=== PATIENT | female | born 1955 | race Caucasian/White ===

== ENCOUNTER 2019-05-27 12:47 | Inpatient (IN) | payer OTHER ==
[~2019-05-27] VITALS: Ht 165.1 cm; Wt 108.5 kg
[~2019-05-27 12:47] MED LIST: BENAZEPRIL HCL40 MG PO; BYSTOLIC 5 MG5 M1 PO; DIABETA 5MG TABL5 MG PO; HYDROCHLOROTHIA25 M2 PO; JANUMET 50-1,01 EACH PO; NABUMETONE 750750 M1 PO; NORCO 5-325 TA1 EACH PO; VERAPAMIL E.R240 M1 PO; ZANAFLEX4 MG PO; ZOCOR40 MG PO
[2019-05-27 12:48] VITALS: BP 151/78
[2019-05-27] MEDS ORDERED: AUGMENTIN 875-1 EACH PO (12:56)
[2019-05-27] MEDS ORDERED: ZETIA10 MG PO (12:56)
[2019-05-27] MEDS ORDERED: GLUCOSAMINE CH1 EAC1 PO (12:57)
[2019-05-27] MEDS ORDERED: JANUMET 50-1,01 EACH PO (12:58)
[2019-05-27] MEDS ORDERED: MONTELUKAST SODI4 M1 PO (12:59)
[2019-05-27] MEDS ORDERED: TRADJENTA5 MG (12:59)
[2019-05-27] MEDS ORDERED: GLIPIZIDE5 MG PO (13:00)
[2019-05-27] MEDS ORDERED: FLONASE 0.05%50 MCG NARES (13:00)
[2019-05-27] MEDS ORDERED: SIMVASTATIN80 MG PO (13:00)
[2019-05-27] MEDS ORDERED: VERAPAMIL E.R240 M1 PO (13:01)
[2019-05-27] MEDS ORDERED: VENLAFAXINE HCL75 M1 PO (13:01)
[2019-05-27] MEDS ORDERED: ACTOS 30 MG TAB30 MG PO (13:01)
[2019-05-27] MEDS ORDERED: CARVEDILOL12.5 MG PO (13:02)
[2019-05-27] MEDS ORDERED: PREGABALIN75 MG PO (13:02)
[2019-05-27 13:19] LABS: INFLUENZA A ANTIGEN Negative (Negative); INFLUENZA B ANTIGEN Negative (Negative)
[2019-05-27 13:22] LABS: HEMATOCRIT 34.9 % (37.0-47.0); HEMOGLOBIN 11.6 gm/dL (12.0-15.0); MCH 29.7 pg (26.0-34.0); MCHC 33.2 g/dL (28.0-37.0); MCV 89.5 fL (80.0-100.0); MPV 9.2 fl. (7.2-11.1); NUCLEATED RBCS 0 /100WBC; PLATELET COUNT* 294 thou/uL (150-400); RDW-CV 16.6 % (10.5-14.5); WBC 9.2 thou/uL (4.0-11.0)
[2019-05-27 13:34] LABS: APTT 28.3 Seconds (25.0-31.3); INR 1.1; PROTIME 11.4 Seconds (9.20-11.50)
[2019-05-27 13:37] LABS: URINE BILIRUBIN NEGATIVE (Negative); URINE BLOOD 3+ (Negative); URINE CLARITY TURBID; URINE COLOR BROWN; URINE GLUCOSE-RANDOM 3+ (Negative); URINE KETONES NEGATIVE (Negative); URINE LEUKOCYTES-REFLEX TRACE (Negative); URINE NITRITE-REFLEX NEGATIVE (Negative); URINE PROTEIN TRACE (Negative); URINE SPECIFIC GRAVITY 1.025 (1.005-1.030); URINE UROBILINOGEN 0.2 E.U./dl (0.2-1.0)
[2019-05-27 13:45] LABS: CALCIUM 8.8 mg/dL (8.5-10.1); CREATININE 1.6 mg/dL (0.6-1.3); POTASSIUM 3.7 mmol/L (3.5-5.1)
[2019-05-27 13:46] LABS: BACTERIA-REFLEX >30 Many /HPF (None Seen); CASTS None Seen /LPF (None Seen); SQUAMOUS 0-3 Few /LPF (0-3); URINE RBC >20 Many /HPF (0-2); URINE WBC-REFLEX >25 Many /HPF (0-5); WBC CLUMPS Moderate (None Seen)
[2019-05-27 13:46] LABS: ALBUMIN 1.8 g/dL (3.4-5.0); TOTAL BILIRUBIN 0.4 mg/dL (<0.1-1.0); TOTAL PROTEIN 7.1 g/dL (6.4-8.2)
[2019-05-27 13:47] LABS: CRYSTALS None Seen /LPF (None Seen)
[2019-05-27 14:09] LABS: ABSOLUTE EOSINOPHILS 0.1 thou/uL (0.0-0.7); ABSOLUTE LYMPHOCYTES 0.8 thou/uL (0.8-5.3); ABSOLUTE MONOCYTES 0.2 thou/uL (0.0-1.2); ABSOLUTE NEUTROPHILS 8.1 thou/uL (1.6-8.1); ANISOCYTOSIS 1+; METAMYELOCYTES 3 %; MYELOCYTES 3 %; PLATELET ESTIMATE ADEQUATE; POLYCHROMASIA Occasional; TOXIC GRANULATION 2+
[2019-05-27 15:54] LABS: MAGNESIUM 2.5 mg/dL (1.8-2.4); PHOSPHORUS* 3.1 mg/dL (2.5-4.9)
[2019-05-27 16:47] LABS: AMP/METHAMP Negative (Negative); BARBITURATES Negative (Negative); BENZODIAZEPINES Negative (Negative); COCAINE Negative (Negative); METHADONE Negative (Negative); OPIATES Negative (Negative); PCP Negative (Negative); THC Negative (Negative)
[2019-05-27 19:40] VITALS: BP 122/80
[2019-05-27 21:30] VITALS: BP 109/70
[2019-05-28] VITALS (7 sets, daily range): BP systolic 81–121; BP diastolic 40–62
[2019-05-28 21:40] LABS: ANION GAP 14 mmol/L (7-16); BUN 73 mg/dL (7-18); CALCIUM 7.8 mg/dL (8.5-10.1); CHLORIDE 104 mmol/L (98-107); CO2 20 mmol/L (21-32); CREATININE 1.9 mg/dL (0.6-1.3); GLUCOSE 342 mg/dL (70-99); POTASSIUM 4.4 mmol/L (3.5-5.1); SODIUM 138 mmol/L (136-145)
[2019-05-28 21:46] LABS: ALBUMIN 1.2 g/dL (3.4-5.0); ALKALINE PHOSPHATASE 152 U/L (46-116); AMMONIA < 10 umol/L (11-32); MAGNESIUM 2.7 mg/dL (1.8-2.4); PHOSPHORUS* 4.2 mg/dL (2.5-4.9); SGOT 44 U/L (15-37); SGPT 29 U/L (30-65); TOTAL BILIRUBIN 0.5 mg/dL (<0.1-1.0); TOTAL PROTEIN 6.3 g/dL (6.4-8.2)
[2019-05-29] VITALS (16 sets, daily range): BP systolic 79–141; BP diastolic 42–72
[2019-05-29 02:07] LABS: GLYCOHEMOGLOBIN (HGB A1C) 10.3 % (4.8-5.6)
[2019-05-29 04:35] LABS: HEMOGLOBIN 10.2 gm/dL (12.0-15.0); MCH 29.1 pg (26.0-34.0); NUCLEATED RBCS 0 /100WBC
[2019-05-29 04:37] LABS: HEMATOCRIT 31.4 % (37.0-47.0); MCHC 32.6 g/dL (28.0-37.0); MCV 89.3 fL (80.0-100.0); MPV 9.2 fl. (7.2-11.1); PLATELET COUNT* 274 thou/uL (150-400); RBC 3.52 mil/uL (4.20-5.00); RDW-CV 17.3 % (10.5-14.5); WBC 12.7 thou/uL (4.0-11.0)
[2019-05-29 05:20] LABS: ALBUMIN 1.3 g/dL (3.4-5.0); CALCIUM 7.9 mg/dL (8.5-10.1); TOTAL BILIRUBIN 0.5 mg/dL (<0.1-1.0); TOTAL PROTEIN 6.3 g/dL (6.4-8.2)
[2019-05-29 06:07] LABS: ABSOLUTE LYMPHOCYTES 0.9 thou/uL (0.8-5.3); ABSOLUTE MONOCYTES 0.1 thou/uL (0.0-1.2); ABSOLUTE NEUTROPHILS 11.7 thou/uL (1.6-8.1); MYELOCYTES 1 %; PLATELET ESTIMATE ADEQUATE
[2019-05-29 06:08] LABS: ANISOCYTOSIS 1+; POIKILOCYTOSIS 1+
--- NOTE | 2019-05-29 07:26 | CON ---
[address] [address] CONSULTATION Name: ORI SINCLAIR Room: [address] ADM IN M.R.#: [id number] Admission: 05/27/19 Attend Phys: Citlaly Paige Discharge: Date of : 55 Report #: [id number] THIS REPORT FOR: //name// cc: DIMAS Corona family physician/PCP DIMAS Corona family physician/PCP ~ THIS REPORT FOR: //name// CC: DIMAS physician/PCP Citlaly Hernandez DATE OF SERVICE: 05/28/2019 INFECTIOUS DISEASE CONSULTATION ATTENDING PHYSICIAN: Citlaly Hernandez MD REASON FOR EVALUATION: Necrotizing skin and soft tissue infection involving the right side of the perineum into the abdominal wall, like on a basis of hidradenitis suppurativa. HISTORY OF PRESENT ILLNESS: Chart reviewed, the patient examined. She is seen postop day-1. A 64-year-old with uncontrolled diabetes mellitus type 2 and does have history of hidradenitis suppurativa, morbid obesity, who over the course of the last several day, she dates back roughly 4-5, had become quite weak and several falls, noted increasing inflammation associated with her right groin with significant associated pain. She is somewhat encephalopathic, does not know a lot details on the history. Did admit to fevers, perhaps chills, some dysuria. She was evaluated, including imaging, which showed some extensive subcutaneous emphysema of the abdominal wall, both flanks and retroperitoneal space. Evaluation was felt to be most consistent with a necrotizing infection. She was emergently taken to surgery, underwent debridement of what was confirmed to be a necrotizing soft tissue infection of the right thigh, abdomen and perineum. Cultures have been collected, in progress on the combination therapy at this point with vancomycin, piperacillin and tazobactam as well as clindamycin. She is on supplemental oxygen support per nasal cannula. She has had a reasonable amount of urine output. ALLERGIES: None known. MEDICATIONS: Currently include montelukast, glipizide, verapamil SR, fluticasone, ezetimibe, venlafaxine, vancomycin, p.r.n. analgesics, antiemetics, Zosyn, carvedilol, clindamycin, insulin lispro sliding scale. PAST MEDICAL HISTORY: Above noted, diabetes mellitus type 2; noncontrolled, history of hypertension, hyperlipidemia, [place] [address] CONSULTATION Name: ORI SINCLAIR Chiquita Room: [address]#: [id number] Admission: 05/27/19 Attend Phys: Citlaly Paige Discharge: Date of : 55 Report #: [id number] SOCIAL HISTORY: Former smoker. No ethanol. No illicit drug use. FAMILY HISTORY: Noncontributory. REVIEW OF SYSTEMS: As noted above. It is not clear that this is accurate a description. She is mildly encephalopathic. PHYSICAL EXAMINATION: GENERAL: She appears ill, not overtly toxic. She does not respond. She is in moderate distress at this point. VITAL SIGNS: Temperature 97.4, pulse 88, respirations 19, blood pressure is 94/49. SKIN: Warm, no rashes. NECK: Supple. Nasal cannula oxygen in place. Extraocular muscles intact. LUNGS: Increased dry respiratory efforts. A few scattered coarse breath sounds. HEART: Regular. Borderline tachycardic. I do not appreciate a murmur. ABDOMEN: Obese. There is pannus. Does have a dressing in place in the right inguinal site, extends onto the abdominal wall in the perineal area, proximal thigh. Some moderate degree of inflammation noted superficially. GENITOURINARY AND RECTAL: Deferred. LABORATORY DATA: Prealbumin low at 4.4. Lactic acid on admission 1.7. CT abdomen and pelvis described above. Urine drug screen was unremarkable. CT of the chest was unremarkable. Electrolytes: Sodium 132, potassium 3.7, chloride 98, bicarb is 24, anion gap of 10, BUN and creatinine 43 and 1.6, glucose was 597. AST of 18, ALT of 25. Albumin is low at 1.8, total protein of 7.1. CBC: White count of 9.2, H and H 12.6 and 34.9, platelets of 294. Had some Dohle bodies noted and 2+ toxic granulations. Urinalysis greater than 25 white cells, greater than 30 bacteria. Chest x-ray: Cardiomegaly without significant acute issues. Possible atelectasis in the right base. Influenza antigen was negative. ASSESSMENT: Necrotizing skin and soft tissue infection. Evidence suggests [id number] progression, would assume skin-type mohan, although cannot exclude Gram-negatives. We will continue current therapy. Await results of the operative cultures, including the blood stream, which may well be positive as well. Certainly, likely there is a urinary tract infection. She remains quite tenuous. We will encourage incentive spirometry. Continue wound care as prescribed. Deferred to Surgery about any additional surgical intervention. <ELECTRONICALLY SIGNED> By: Julio C Cowart MD 05/29/19 0726 0930 [id number] pierre Cowart MD /nt
[2019-05-29 13:44] LABS: BE -11.9 mmol/L (-2 to +3); PO2 98.5 mmHg (75.0-100.0)
[2019-05-29 13:46] LABS: pH 7.093 (7.340-7.450)
[2019-05-29 13:47] LABS: PCO2 62.2 mmHg (35.0-45.0)
[2019-05-29 17:10] LABS: BE -9.8 mmol/L (-2 to +3); PCO2 46.2 mmHg (35.0-45.0); PO2 122.2 mmHg (75.0-100.0)
[2019-05-29 17:13] LABS: pH 7.204 (7.340-7.450)
[2019-05-30] VITALS (41 sets, daily range): BP systolic 83–128; BP diastolic 44–86
[2019-05-30 05:20] LABS: BE -7.9 mmol/L (-2 to +3); PCO2 43.2 mmHg (35.0-45.0)
[2019-05-30 05:22] LABS: PO2 133.9 mmHg (75.0-100.0)
[2019-05-30 05:23] LABS: pH 7.259 (7.340-7.450)
[2019-05-30 05:25] LABS: HEMATOCRIT 25.5 % (37.0-47.0); HEMOGLOBIN 8.9 gm/dL (12.0-15.0); MCH 30.6 pg (26.0-34.0); MCHC 35.1 g/dL (28.0-37.0); MCV 87.2 fL (80.0-100.0); MPV 8.7 fl. (7.2-11.1); RBC 2.93 mil/uL (4.20-5.00); RDW-CV 17.3 % (10.5-14.5); WBC 17.4 thou/uL (4.0-11.0)
[2019-05-30 06:56] LABS: CREATININE 2.4 mg/dL (0.6-1.3); MAGNESIUM 3.6 mg/dL (1.8-2.4); TOTAL BILIRUBIN 0.7 mg/dL (<0.1-1.0); TOTAL PROTEIN 5.8 g/dL (6.4-8.2)
[2019-05-30 16:39] LABS: HEMATOCRIT 20.7 % (37.0-47.0)
[2019-05-30 16:42] LABS: HEMOGLOBIN 6.9 gm/dL (12.0-15.0)
[2019-05-30 18:36] LABS: URINE BILIRUBIN NEGATIVE (Negative); URINE BLOOD NEGATIVE (Negative); URINE CLARITY SL CLOUDY; URINE COLOR YELLOW; URINE GLUCOSE-RANDOM NEGATIVE (Negative); URINE KETONES NEGATIVE (Negative); URINE LEUKOCYTES NEGATIVE (Negative); URINE NITRITE NEGATIVE (Negative); URINE PROTEIN TRACE (Negative); URINE SPECIFIC GRAVITY >= 1.030 (1.005-1.030); URINE UROBILINOGEN 0.2 E.U./dl (0.2-1.0)
[2019-05-30 18:43] LABS: HYALINE CASTS >10 Many /LPF (None Seen); SQUAMOUS >10 Many /LPF (0-3)
[2019-05-30 18:44] LABS: MUCUS 0-3 Light strn/LPF (None Seen)
[2019-05-30 18:45] LABS: AMORPHOUS URATES Few /LPF (None Seen); URINE RBC 0-2 Rare /HPF (0-2); URINE WBC 0-5 Rare /HPF (0-5)
[2019-05-30 18:49] LABS: BACTERIA 1-9 Few /HPF (None Seen)
[2019-05-30 20:17] LABS: HEMATOCRIT 25.5 % (37.0-47.0)
[2019-05-30 20:19] LABS: HEMOGLOBIN 9.3 gm/dL (12.0-15.0)
[2019-05-30 20:25] LABS: APTT 23.8 Seconds (25.0-31.3)
[2019-05-31] VITALS (36 sets, daily range): BP systolic 104–153; BP diastolic 46–81
[2019-05-31 04:57] LABS: HEMATOCRIT 24.9 % (37.0-47.0); HEMOGLOBIN 9.3 gm/dL (12.0-15.0); MCH 32.2 pg (26.0-34.0); MCHC 37.4 g/dL (28.0-37.0); MCV 86.1 fL (80.0-100.0); RBC 2.89 mil/uL (4.20-5.00); RDW-CV 17.5 % (10.5-14.5); WBC 16.8 thou/uL (4.0-11.0)
[2019-05-31 05:30] LABS: ALBUMIN 1.2 g/dL (3.4-5.0); POTASSIUM 4.2 mmol/L (3.5-5.1); TOTAL BILIRUBIN 0.9 mg/dL (<0.1-1.0)
[2019-05-31 05:52] LABS: MAGNESIUM 3.7 mg/dL (1.8-2.4)
[2019-05-31 06:11] LABS: TOTAL PROTEIN 4.1 g/dL (6.4-8.2)
[2019-05-31 06:13] LABS: CALCIUM 5.9 mg/dL (8.5-10.1); CREATININE 2.4 mg/dL (0.6-1.3)
[2019-05-31 10:23] LABS: BE -12.9 mmol/L (-2 to +3); PCO2 VENOUS 36.9 mmHg (41.0-51.0); PO2 VENOUS 57.1 mmHg (35.0-45.0)
[2019-05-31 21:41] LABS: BE -10.1 mmol/L (-2 to +3); PO2 VENOUS 102.3 mmHg (35.0-45.0)
[2019-06-01] VITALS (25 sets, daily range): BP systolic 113–149; BP diastolic 46–72
[2019-06-01 04:13] LABS: BE -13.9 mmol/L (-2 to +3); PO2 VENOUS 93.7 mmHg (35.0-45.0)
[2019-06-01 05:26] LABS: POTASSIUM 4.9 mmol/L (3.5-5.1)
[2019-06-01 05:27] LABS: CALCIUM 7.1 mg/dL (8.5-10.1); CREATININE 1.9 mg/dL (0.6-1.3); TOTAL BILIRUBIN 0.5 mg/dL (<0.1-1.0)
[2019-06-01 05:28] LABS: MAGNESIUM 3.4 mg/dL (1.8-2.4)
[2019-06-01 05:29] LABS: ALBUMIN 1.4 g/dL (3.4-5.0)
[2019-06-01 07:33] LABS: BE -11.7 mmol/L (-2 to +3); PCO2 VENOUS 38.9 mmHg (41.0-51.0); PO2 VENOUS 146.4 mmHg (35.0-45.0)
[2019-06-01 09:08] LABS: RBC 2.98 mil/uL (4.20-5.00); WBC 24.2 thou/uL (4.0-11.0)
[2019-06-01 09:09] LABS: HEMATOCRIT 25.9 % (37.0-47.0); HEMOGLOBIN 8.2 gm/dL (12.0-15.0); MCHC 31.5 g/dL (28.0-37.0); MCV 86.9 fL (80.0-100.0); MPV 10.5 fl. (7.2-11.1); RDW-CV 18.8 % (10.5-14.5)
[2019-06-01 09:16] LABS: MCH 27.3 pg (26.0-34.0)
--- NOTE | 2019-06-01 12:22 | EKG ---
[place] [address] ELECTROCARDIOGRAM REPORT Name: ORI SINCLAIR Room: [address] IN ..#: [id number] Admission: 05/27/19 Attend Phys: Citlaly simpson Sa Discharge: Date of : 55 Date of Service: 05/27/19 1251 Report #: [id number] THIS REPORT FOR: //name// [facility] ED Test Date: 2019-05-27 Test Time: 12:51:25 Pat Name: ORI SINCLAIR Department: Room: [facility] Gender: F Crisis Worker: RODGER : 1955 Requested By: Ismael Holloway Order Number: [id number] MD: Brent Andre Measurements Intervals Peggs Rate: 117 P: 58 IL: 151 QRS: 63 QRSD: 80 T: 25 QT: 299 QTc: 417 Interpretive Statements Sinus tachycardia Low voltage, precordial leads No previous ECG available for comparison Electronically Signed On 05-28-2019 9:08:48 CDT by Brent Andre [email or web address] <ELECTRONICALLY SIGNED> By: Brent Andre MD, [facility] 05/28/19 0908 1251 1251 Brent Andre MD, [facility] /EPI
[2019-06-01 21:13] LABS: BE -1.4 mmol/L (-2 to +3); PCO2 VENOUS 38.2 mmHg (41.0-51.0); PO2 VENOUS 221.3 mmHg (35.0-45.0)
[2019-06-02] VITALS (47 sets, daily range): BP systolic 56–178; BP diastolic 12–134
[2019-06-02 06:04] LABS: POTASSIUM 3.7 mmol/L (3.5-5.1)
[2019-06-02 06:43] LABS: CALCIUM 6.1 mg/dL (8.5-10.1); CREATININE 1.5 mg/dL (0.6-1.3); PHOSPHORUS* 7.2 mg/dL (2.5-4.9)
[2019-06-02 06:44] LABS: ALBUMIN 1.2 g/dL (3.4-5.0); TOTAL PROTEIN 4.2 g/dL (6.4-8.2)
[2019-06-02 11:10] LABS: BE -4.6 mmol/L (-2 to +3); PCO2 VENOUS 35.2 mmHg (41.0-51.0); PO2 VENOUS 51.2 mmHg (35.0-45.0)
[2019-06-02 11:27] LABS: MCV 87.3 fL (80.0-100.0); NUCLEATED RBCS 0 /100WBC; WBC 21.1 thou/uL (4.0-11.0)
[2019-06-02 12:33] LABS: PLATELET COUNT* 201 thou/uL (150-400)
[2019-06-02 12:43] LABS: HEMOGLOBIN 8.1 gm/dL (12.0-15.0)
[2019-06-02 12:50] LABS: HEMATOCRIT 19.2 % (37.0-47.0)
[2019-06-02 12:51] LABS: MCH 28.6 pg (26.0-34.0); MCHC 32.8 g/dL (28.0-37.0)
[2019-06-02 13:43] LABS: ABSOLUTE EOSINOPHILS 0.2 thou/uL (0.0-0.7); ABSOLUTE LYMPHOCYTES 1.7 thou/uL (0.8-5.3); ABSOLUTE MONOCYTES 0.4 thou/uL (0.0-1.2); ABSOLUTE NEUTROPHILS 18.8 thou/uL (1.6-8.1)
[2019-06-02 13:44] LABS: PLATELET ESTIMATE ADEQUATE
--- NOTE | 2019-06-04 09:31 | CON ---
[address] [address] CONSULTATION Name: ORI SINCLAIR Room: [address] IN M.R.#: [id number] Admission: 05/27/19 Attend Phys: Citlaly Paige Discharge: 06/02/19 Date of : 55 Report #: [id number] THIS REPORT FOR: //name// cc: DIMAS Corona family physician/PCP DIMAS Corona family physician/PCP ~ THIS REPORT FOR: //name// CC: DIMAS physician/PCP Citlaly Hernandez DATE OF SERVICE: 05/30/2019 NEPHROLOGY CONSULTATION CONSULTING PHYSICIAN: Dr. Reddy. REASON FOR NEPHROLOGY CONSULTATION: Acute kidney injury, oliguric. REASON FOR ADMISSION: Severe sepsis, hidradenitis suppurativa of right groin CHIEF COMPLAINT: Right groin pain and she had been having multiple falls and weakness for the past few days prior to admission. HISTORY OF PRESENT ILLNESS: This is a 64-year-old female with uncontrolled diabetes, sedentary lifestyle, hidradenitis suppurativa in the past, obesity, came in because she was having pain in the right groin subtle with a boil, but then progressively became worse and swollen and she has also been having falls at home and she took some Bactrim at home. We do not have a baseline creatinine. We know that it was 0.9 in 04/2015, but she came in with a creatinine of 1.[address] abdomen and pelvis, which was done on 05/26 with IV contrast showed evidence of purulent hidradenitis suppurativa of right groin with palpable crepitus. The patient actually underwent excisional debridement the same day of admission on 05/26. She was taken back to the OR yesterday because of another excisional debridement of the same area and she is supposed to be taken to the OR again today because of severe necrotizing fasciitis. She was hypotensive yesterday, blood pressure as low as 79/42. Blood pressure is still low this morning and she will be started on pressors. She was given IV fluids initially, which were then stopped, but then restarted yesterday. She has also been getting vancomycin. Vancomycin level was slightly high yesterday at 23. She also has possible left basilar pneumonia. She is currently intubated and sedated. Her urine output was only 140 mL overnight. She has also been getting banana bag and magnesium level is rising. REVIEW OF SYSTEMS: Not able to obtain from the patient because she is sedated. ALLERGIES: [place] [address] CONSULTATION Name: ORI SINCLAIR Room: [address] IN ..#: [id number] Admission: 05/27/19 Attend Phys: Citlaly simpson [place] Discharge: 06/02/19 Date of : 55 Report #: [id number] PAST MEDICAL AND SURGICAL HISTORY: Includes hypertension, hyperlipidemia, tubal ligation, diabetes mellitus, which is uncontrolled. Her A1c was 10.3 this time. FAMILY HISTORY: Heart disease and hypertension. SOCIAL HISTORY: Former smoker. Does not use recreational drugs. Does not use alcohol. HOME MEDICATIONS: Include Janumet. She is on hydrochlorothiazide, verapamil, Zetia. She is on glucosamine chondroitin. She is on montelukast, Tradjenta, glipizide, fluticasone, pioglitazone, venlafaxine, pregabalin, carvedilol. PHYSICAL EXAMINATION: VITAL SIGNS: Her blood pressure is 98/55, her temperature is 36.6, pulse rate 79, respiratory rate is 20, pulse ox 95%. She is on ventilator. GENERAL: She is intubated. HEAD AND EYES: Atraumatic, normocephalic. EARS, NOSE, AND THROAT: Normal ears and nose. ET tube in place. NECK: No JVD. CHEST: Bilateral diminished breath sounds. No crackles anteriorly. CARDIOVASCULAR: S1, S2 normal. No murmurs. ABDOMEN: Obese, distended especially in the lower area. GENITOURINARY: She has swelling in the bottom part of her abdomen in the groin area as well as erythema. EXTREMITIES: Lower extremities; they are getting puffier. There was no pitting edema. NEUROLOGIC: Sedated, could not be assessed. PSYCHIATRIC: Not able to assess. She is intubated and sedated. LABORATORY DATA: Her white count is 17.4 and rising from 12.7 yesterday, hemoglobin is 8.9, platelet count is 252,000. Sodium was 140, potassium was 4.0, chloride was 106, BUN was 108, creatinine was 2.4 up from 2.0, pH was 7.259 with a pCO2 of 43 and a bicarb of 22 on her BMP, A1c of 10.3, magnesium of 3.6. Vancomycin level yesterday was 23 and other labs are reviewed. IMAGING: Abdominal x-ray and abdominal and pelvic CT scan, head CT scan, chest CT scan are all reviewed. ASSESSMENT: 1. Acute kidney injury. This is likely ischemic acute tubular necrosis in the setting of intravascular volume depletion as well as element of contrast-induced nephropathy. She had a CAT scan on 05/25. Her baseline creatinine is not known. We know that in 04/2015 was 0.9 and it was 1.6 on admission, but it has been rising now. She is also oliguric. Had to be taken to the OR twice already and will be taken again today for further excisional [place] [address] CONSULTATION Name: ORI SINCLAIR Room: [address] IN M.R.#: [id number] Admission: 05/27/19 Attend Phys: Citlaly simpson [place] Discharge: 06/02/19 Date of : 55 Report #: [id number] fasciitis of the groin. Initial UA was reviewed and showed trace protein and wbc's and rbc's. There was no evidence of hydronephrosis on her CAT scan, which was done yesterday. 2. Sepsis, about to be started on pressors. This is because of hidradenitis suppurativa purulent. 3. Uncontrolled diabetes type 2. 4. Hypotension. 5. Possible benzodiazepine withdrawal. 6. Also being treated for complicated urinary tract infection. 7. Obesity. 8. Hypermagnesemia. 9. Left basilar pneumonia. 10. Right adrenal mass, incidentally found on CT scan. PLAN: 1. Avoid lactated Ringer's because she is not making much urine and potassium will have a tendency to go up and lactated Ringer's has potassium in it. 2. Try to maintain a MAP of around 70. She will need pressor initiation. 3. IV fluids and normal saline at 80 mL an hour is fine for now. Avoid banana bag and other magnesium containing compounds because the magnesium is rising. 4. Vancomycin level should be followed closely. If level is greater than 20, should not be redosed because of fear of nephrotoxicity. 5. Avoid nephrotoxic agents or IV contrast exposures if possible. 6. There is no acute need for dialysis yet, but she might need it during her hospital course. 7. Repeat UA if possible. 8. Strict I's and O's. Thank you for this consultation. I spent 45 minutes and critical care time was spent in chart review, placing orders and care coordination, discussion with the patient's nurse and we will continue to follow along with you. <ELECTRONICALLY SIGNED> By: Nanci Vargas MD 06/04/19 0931 1006 [id number] Vargas MD /nt
--- NOTE | 2019-06-07 08:19 | OP ---
[facility] [address] [place] [address] OPERATIVE REPORT Name: ORI SINCLAIR Chiquita Room: [address] IN M.R.#: [id number] Admission: 05/27/19 Attend Phys: Citlaly Paige Discharge: 06/02/19 Date of : 55 Report #: [id number] THIS REPORT FOR: //name// cc: DIMAS Corona family physician/PCP DIMAS Corona family physician/PCP ~ THIS REPORT FOR: //name// CC: DIMAS physician/PCP Citlaly Hernandez DATE OF SERVICE: 05/27/2019 PREOPERATIVE DIAGNOSIS: Necrotizing soft tissue infection of the right thigh, abdominal wall, and perineum. POSTOPERATIVE DIAGNOSIS: Necrotizing soft tissue infection of the right thigh, abdominal wall, and perineum. OPERATION: Debridement of necrotizing soft tissue infection of the right thigh, abdomen, and perineum. SURGEON: Sarbjit Hale M.D. ANESTHESIA: General. ESTIMATED BLOOD LOSS: 100 mL. SPECIMEN: Abscess fluid for culture and sensitivity. DESCRIPTION OF PROCEDURE: After informed consent was obtained, the patient was brought to the operating room and placed supine. SCDs were placed and working, preoperative antibiotics were administered, general anesthesia was induced. The abdomen and right thigh were prepped and draped in the usual sterile fashion. Cultures were taken of the fluid. The opening in the right thigh was extended superiorly and laterally. This was done for approximately 20 cm. There was a foul-smelling turbid fluid that was released. I then explored medially toward the pubis and laterally toward the right flank. There was again more turbid foul-smelling necrotic tissue and fluid. This was debrided with the cautery. This did extend down the right thigh into at the perineum as well. The area was then copiously irrigated with normal saline. The area was then packed with sterile gauze. Sterile dressings were applied. COMPLICATIONS: [place] [address] OPERATIVE REPORT Name: ORI SINCLAIR Room: [address]#: [id number] Admission: 05/27/19 Attend Phys: Citlaly simpson [place] Discharge: 06/02/19 Date of : 55 Report #: [id number] DISPOSITION: The patient was taken to recovery in satisfactory condition. <ELECTRONICALLY SIGNED> By: Sarbjit Hale MD 06/07/19 0819 2107 [id number] Hale MD /nt
--- NOTE | 2019-06-07 08:19 | OP ---
[address] [address] OPERATIVE REPORT Name: DOTTIEORI Chiquita Room: [address] IN M.R.#: [id number] Admission: 05/27/19 Attend Phys: Citlaly Paige Discharge: 06/02/19 Date of : 55 Report #: [id number] THIS REPORT FOR: //name// cc: DIMAS Corona family physician/PCP DIMAS Corona family physician/PCP ~ THIS REPORT FOR: //name// CC: DIMAS physician/PCP Citlaly Hernandez DATE OF SERVICE: 05/31/2019 PREOPERATIVE DIAGNOSES: Necrotizing soft tissue infection of the right groin and abdomen. POSTOPERATIVE DIAGNOSES: Necrotizing soft tissue infection of the right groin and abdomen. OPERATION: Excisional debridement of necrotizing soft tissue infection of the right abdomen, groin and perineum. SURGEON: Sarbjit Hale MD ANESTHESIA: General. ESTIMATED BLOOD LOSS: Minimal. SPECIMEN: None. DESCRIPTION OF PROCEDURE: After informed consent was obtained, the patient was brought to the operating room and placed supine. This consent was at a medical necessity. General anesthesia was induced. The abdomen was prepped and draped in a usual sterile fashion with Betadine. All the previously placed packs were removed. I examined the tissue. There was no more purulence. There was no more foul odor. There were areas of necrotic tissue. These were green, consistent with necrotizing infection. I grasped these areas and excised them with electrocautery. This was excisional. Depth was down through the fascia and muscle. An 80% of the wound was debrided. The post-debridement wound area was approximately 30 x 20 x 10 cm. I then irrigated the area copiously with normal saline. It was then packed with sterile gauze. Sterile dressings were applied. COMPLICATIONS: [place] [address] OPERATIVE REPORT Name: ORI SINCLAIR Room: [facility] IN [facility].#: [id number] Admission: 05/27/19 Attend Phys: Citlaly french [place] Discharge: 06/02/19 Date of : 55 Report #: [id number] DISPOSITION: The patient was taken to recovery in satisfactory condition. <ELECTRONICALLY SIGNED> By: Sarbjit Hale MD 06/07/19 0819 1405 [id number] Hale MD /nt
--- NOTE | 2019-06-07 08:19 | OP ---
[address] [address] OPERATIVE REPORT Name: DOTTIEORI Chiquita Room: [address] IN M.R.#: [id number] Admission: 05/27/19 Attend Phys: Citlaly Paige Discharge: 06/02/19 Date of : 55 Report #: [id number] THIS REPORT FOR: //name// cc: DIMAS Corona family physician/PCP DIMAS Corona family physician/PCP ~ THIS REPORT FOR: //name// CC: DIMAS physician/PCP Citlaly Hernandez DATE OF SERVICE: 05/29/2019 PREOPERATIVE DIAGNOSIS: Necrotizing soft tissue infection of the right groin and abdomen. POSTOPERATIVE DIAGNOSIS: Necrotizing soft tissue infection of the right groin and abdomen. OPERATION: Excisional debridement of necrotizing soft tissue of the right groin and abdomen, down through muscle. SURGEON: Sarbjit Hale MD ANESTHESIA: General. ESTIMATED BLOOD LOSS: Minimal. SPECIMEN: None. DESCRIPTION OF PROCEDURE: After informed consent was obtained, the patient was brought to the operating room and placed supine. Consent was implied as the patient is very confused and this was done at a medical necessity. The patient underwent general anesthesia. The right abdomen was prepped and draped in the usual sterile fashion with Betadine. The previously placed dressings were removed. Exploration was undertaken. She still had areas of necrosis in the incision. Therefore, I elected to debride away approximately 30 x 20 cm area of skin and underlying fascia and muscle as well as fat. I used the cautery to sharply debride away this necrotic tissue. I dissected away to normal appearing fat on all sides. The odor was much improved. The area was then examined. I was able to dissect across the midline at the level of the pubis and looked over into the left subcutaneous area. There was no evidence of any necrosis on that side. The area was then copiously irrigated with normal saline. It was packed with Kerlix rolls soaked in half strength Dakin's solution. Sterile [place] [address] OPERATIVE REPORT Name: ORI SINCLAIR Room: [address] IN M.R.#: [id number] Admission: 05/27/19 Attend Phys: Citlaly french gary [place] Discharge: 06/02/19 Date of : 55 Report #: [id number] COMPLICATIONS: None. DISPOSITION: The patient was taken to recovery in very guarded condition. <ELECTRONICALLY SIGNED> By: Sarbjit Hale MD 06/07/19 0819 1042 [id number] Hale MD /manisha
== END 2019-06-02 19:27 | DRG 853 ==
LOC: M.ERS 12:47 → M.ICU 16:01 → M.2W 16:01 → M.TBA-ER 16:01 → M.2W 21:16 → M.ICU 05-29 12:36
PROVIDERS: Family Medicine; Internal Medicine; Internal Medicine Pulmonary Disease; Nurse Practitioner; ADMIT Family Medicine
PROC: 0JBB0ZZ Excision of Perineum Subcutaneous Tissue and Fascia, Open Approach (ICD-10-PCS; 2019-05-27)
PROC: 0JBL0ZZ Excision of Right Upper Leg Subcutaneous Tissue and Fascia, Open Approach (ICD-10-PCS; 2019-05-27)
PROC: 5A1955Z Respiratory Ventilation, Greater than 96 Consecutive Hours (ICD-10-PCS; principal; 2019-05-29)
PROC: 0BH17EZ Insertion of Endotracheal Airway into Trachea, Via Natural or Artificial Opening (ICD-10-PCS; principal; 2019-05-29)
PROC: 02HV33Z Insertion of Infusion Device into Superior Vena Cava, Percutaneous Approach (ICD-10-PCS; 2019-05-29)
PROC: 0KBK0ZZ Excision of Right Abdomen Muscle, Open Approach (ICD-10-PCS; 2019-05-29)
PROC: 30233N1 Transfusion of Nonautologous Red Blood Cells into Peripheral Vein, Percutaneous Approach (ICD-10-PCS; 2019-05-30)
PROC: 0KBK0ZZ Excision of Right Abdomen Muscle, Open Approach (ICD-10-PCS; 2019-05-31)
PROC: 30233M1 Transfusion of Nonautologous Plasma Cryoprecipitate into Peripheral Vein, Percutaneous Approach (ICD-10-PCS; 2019-05-31)
DX: A41.9 Sepsis, unspecified organism (principal); E43 Unspecified severe protein-calorie malnutrition; N17.0 Acute kidney failure with tubular necrosis; R65.21 Severe sepsis with septic shock; G92 Toxic encephalopathy; J96.92 Respiratory failure, unspecified with hypercapnia; F15.93 Other stimulant use, unspecified with withdrawal; N39.0 Urinary tract infection, site not specified; K92.2 Gastrointestinal hemorrhage, unspecified; I96 Gangrene, not elsewhere classified; L73.2 Hidradenitis suppurativa; E11.65 Type 2 diabetes mellitus with hyperglycemia; E78.5 Hyperlipidemia, unspecified; E11.22 Type 2 diabetes mellitus with diabetic chronic kidney disease; I12.9 Hypertensive chronic kidney disease with stage 1 through stage 4 chronic kidney disease, or unspecified chronic kidney disease; I95.9 Hypotension, unspecified; J43.9 Emphysema, unspecified; E83.41 Hypermagnesemia; E27.9 Disorder of adrenal gland, unspecified; N18.3 Chronic kidney disease, stage 3 (moderate); E66.9 Obesity, unspecified; Z68.39 Body mass index [BMI] 39.0-39.9, adult; Z79.84 Long term (current) use of oral hypoglycemic drugs; Z79.899 Other long term (current) drug therapy; Z87.891 Personal history of nicotine dependence